=== PATIENT | male | born 1950 | race Caucasian/White ===

== ENCOUNTER → 2017-12-31 08:58 | Outpatient (CLI) | payer MEDICARE, SELFPAY ==
[2017-12-31 10:46] LABS: Anion Gap 11 (5-15); BUN 9 mg/dL (7-18); BUN/Creat Ratio 12.4 RATIO (10-20); Calcium,Total 8.9 mg/dL (8.5-10.1); Chloride 108 mmol/L (98-107); Cholesterol 115 mg/dL (200); Creatinine, Serum 0.73 mg/dL (0.70-1.30); EST Glomerular Filtration Rate 114 mL/min (>60); Est Glom Filt Rate - Afr Amer 138 mL/min (>60); Glucose 86 mg/dL (74-106); High Density Lipoprotein 45 mg/dL; PSA,Total - Annual Screen 2.85 ng/mL (0.00-4.00); Potassium 4.3 mmol/L (3.5-5.1); Sodium Level 143 mmol/L (136-145); Triglycerides 99 mg/dL; Very Low Density Lipoprotein 20 mg/dL (5-40)
== END ==
PROVIDERS: Family Provider Family Medicine; PCP Family Medicine; Visit Provider Family Medicine
DX: E78.5 Hyperlipidemia, unspecified (principal); Z12.5 Encounter for screening for malignant neoplasm of prostate; I10 Essential (primary) hypertension
CPT/HCPCS: 36415; 80048; 80061; 84153; G0103

== ENCOUNTER → 2019-01-27 07:02 | Outpatient (CLI) | payer MEDICARE, SELFPAY ==
[2019-01-27 10:21] LABS: Anion Gap 2 (5-15); BUN 11 mg/dL (7-18); BUN/Creat Ratio 13.8 RATIO (10-20); Calcium,Total 8.8 mg/dL (8.5-10.1); Chloride 107 mmol/L (98-107); Cholesterol 126 mg/dL (200); EST Glomerular Filtration Rate 102 mL/min (>60); Est Glom Filt Rate - Afr Amer 123 mL/min (>60); Glucose 92 mg/dL (74-106); High Density Lipoprotein 61 mg/dL; Sodium Level 139 mmol/L (136-145); Triglycerides 131 mg/dL; Very Low Density Lipoprotein 26 mg/dL (5-40)
== END ==
PROVIDERS: Family Provider Family Medicine; PCP Family Medicine; Referring Provider Family Medicine; Visit Provider Family Medicine
DX: I25.10 Atherosclerotic heart disease of native coronary artery without angina pectoris (principal); Z12.5 Encounter for screening for malignant neoplasm of prostate; I10 Essential (primary) hypertension
CPT/HCPCS: 36415; 80048; 80061; 84153; G0103

== ENCOUNTER → 2019-09-21 08:04 | Outpatient (CLI) | payer MEDICARE, SELFPAY ==
[2019-09-21 10:08] LABS: ALB/GLOB Ratio 1.4 RATIO (0.9-2.4); AST(SGOT) 35 U/L (15-37); Alanine Aminotransfer ALT/SGPT 55 U/L (16-61); Albumin, Serum 3.9 g/dL (3.2-5.0); Alkaline Phosphatase 60 U/L (45-117); Anion Gap 10 (5-15); BUN 14 mg/dL (7-18); BUN/Creat Ratio 15.7 RATIO (10-20); Calcium,Total 8.9 mg/dL (8.5-10.1); Chloride 108 mmol/L (98-107); Creatinine, Serum 0.89 mg/dL (0.70-1.30); EST Glomerular Filtration Rate 90 mL/min (>60); Est Glom Filt Rate - Afr Amer 108 mL/min (>60); Globulin 2.7 g/dL (2.2-4.2); Glucose 97 mg/dL (74-106); Potassium 3.9 mmol/L (3.5-5.1); Protein, Total 6.6 g/dL (6.4-8.2); Sodium Level 142 mmol/L (136-145)
== END ==
PROVIDERS: Family Provider Family Medicine; PCP Family Medicine; Referring Provider Family Medicine; Visit Provider Family Medicine
DX: I10 Essential (primary) hypertension (principal)
CPT/HCPCS: 36415; 80053

== ENCOUNTER → 2019-09-30 11:08 | Outpatient (CLI) | payer MEDICARE, SELFPAY ==
[2019-09-30 13:08] LABS: PSA,Total- Diagnostic 3.42 ng/mL (0.0-4.0)
== END ==
PROVIDERS: PCP Family Medicine; Referring Provider Family Medicine; Visit Provider Family Medicine
DX: R97.20 Elevated prostate specific antigen [PSA] (principal)
CPT/HCPCS: 36415; 84153

== ENCOUNTER → 2020-02-29 09:19 | Outpatient (CLI) | payer MEDICARE, SELFPAY ==
[2020-02-29 09:47] LABS: Absolute Lymphocyte Count 2.14 X10^3/uL (0.83-4.51); Absolute Neutrophil Count 3.8 X10^3/uL (2.0-7.7); Basophil# 0.04 X10^3/uL; Basophil% 0.6 % (0-1); Eosinophil# 0.08 X10^3/uL; Eosinophils% 1.1 % (0-5); Hematocrit 46.8 % (40-54); Hemoglobin 16.2 g/dL (13.0-16.5); Lymphocyte # 2.14 X10^3/ul (4.0); Lymphocyte % 30.5 % (19-41); Mean Corp Hgb Conc 34.6 g/dL (32-36); Mean Corpuscular Hgb 33.8 pg (27.0-32.0); Mean Corpuscular Volume 97.5 fL (80-94); Mean Platelet Vol. 9.8 fl (6.2-12.0); Monocyte# 0.93 X10^3/uL; Monocyte% 13.2 % (0-10); NRBC Flagged by Analyzer 0 % (0-5); Neutrophil # 3.81 X10^3/uL (2.7-7.7); Neutrophil % 54.3 % (47-70); Platelet Count 201 K/mm3 (150-450); RBC Distribution Width CV 11.6 % (11.6-14.6); RBC Distribution Width SD 41.6 fl (35.1-43.9)
[2020-02-29 10:19] LABS: ALB/GLOB Ratio 1.5 RATIO (0.9-2.4); AST(SGOT) 35 U/L (15-37); Alanine Aminotransfer ALT/SGPT 75 U/L (16-61); Alkaline Phosphatase 60 U/L (45-117); Anion Gap 7 (5-15); BUN 14 mg/dL (7-18); BUN/Creat Ratio 18.5 RATIO (10-20); Calcium,Total 8.8 mg/dL (8.5-10.1); Chloride 105 mmol/L (98-107); Cholesterol 138 mg/dL (200); Creatinine, Serum 0.76 mg/dL (0.70-1.30); EST Glomerular Filtration Rate 108 mL/min (>60); Est Glom Filt Rate - Afr Amer 131 mL/min (>60); Globulin 2.7 g/dL (2.2-4.2); Glucose 95 mg/dL (74-106); High Density Lipoprotein 70 mg/dL; Potassium 3.8 mmol/L (3.5-5.1); Protein, Total 6.7 g/dL (6.4-8.2); Sodium Level 139 mmol/L (136-145); Triglycerides 205 mg/dL; Very Low Density Lipoprotein 41 mg/dL (5-40)
== END ==
PROVIDERS: PCP Family Medicine; Referring Provider Family Medicine; Visit Provider Family Medicine
DX: I10 Essential (primary) hypertension (principal)
CPT/HCPCS: 36415; 80053; 80061; 85025

== ENCOUNTER → 2020-09-27 11:49 | Outpatient (CLI) | payer MEDICARE, SELFPAY ==
--- NOTE | 2020-09-27 11:54 | RAD_ITS ---
HISTORY: BRONCHITIS EXAM: XR Chest 2 Views: COMPARISON: July 15, 2016 FINDINGS: # of images incl. paperwork: 2 Right shoulder arthroplasty remains. Cerclage wires about the sternum remain. Fractures of the cranial-most sternal wire in 2 places is new. Previously it was only fractured in one place. Additional mediastinal clips are present. Lungs are hyperexpanded. Some old healed right rib fractures. Heart is not enlarged. No acute osseous pathology perceived. Pulmonary vascularity is distinct. No effusions. RAD/Chest PA and Lateral IMPRESSION: No acute cardiopulmonary disease. The cranial-most sternal wire is fractured in one place on the previous study. On today's study is fractured in 2 places.. at 0655 Reported and signed by: Cornelio Russo MD Electronically Signed: Cornelio Russo MD at 6:54 EDT Tel , Service support ,
== END ==
PROVIDERS: PCP Family Medicine; Referring Provider Family Medicine; Visit Provider Family Medicine
DX: J20.9 Acute bronchitis, unspecified (principal)
CPT/HCPCS: 71046; 87635; U0005; U0003

== ENCOUNTER → 2020-09-27 | Outpatient (CLI) | payer MEDICARE, SELFPAY | END | disposition home or self-care (01) | LOC: LABSPEC 15:07 | PROVIDERS: PCP Family Medicine; Visit Provider Family Medicine | DX: J20.9 Acute bronchitis, unspecified (principal) | CPT/HCPCS: 87635; U0005; U0003 ==

== ENCOUNTER → 2021-04-11 08:19 | Outpatient (CLI) | payer MEDICARE, SELFPAY ==
[2021-04-11 10:16] LABS: Absolute Lymphocyte Count 2.12 X10^3/uL (0.83-4.51); Absolute Neutrophil Count 3.7 X10^3/uL (2.0-7.7); Basophil# 0.05 X10^3/uL; Basophil% 0.7 % (0-1); Eosinophil# 0.31 X10^3/uL; Eosinophils% 4.4 % (0-5); Hematocrit 45.8 % (40-54); Lymphocyte # 2.12 X10^3/ul (0.83-4.51); Lymphocyte % 29.9 % (19-41); Mean Corp Hgb Conc 34.9 g/dL (32-36); Mean Corpuscular Hgb 33.4 pg (27.0-32.0); Mean Corpuscular Volume 95.6 fL (80-94); Mean Platelet Vol. 9.7 fl (6.2-12.0); Monocyte# 0.91 X10^3/uL; Monocyte% 12.8 % (0-10); NRBC Flagged by Analyzer 0 % (0-5); Neutrophil # 3.69 X10^3/uL (2.7-7.7); Neutrophil % 52.1 % (47-70); Platelet Count 206 K/mm3 (150-450); RBC Distribution Width CV 12.5 % (11.6-14.6); RBC Distribution Width SD 43.8 fl (35.1-43.9); Red Blood Count 4.79 M/mm3 (4.6-6.2); White Blood Count 7.1 K/mm3 (4.4-11.0)
[2021-04-11 10:34] LABS: ALB/GLOB Ratio 1.2 RATIO (0.9-2.4); AST(SGOT) 33 U/L (15-37); Alanine Aminotransfer ALT/SGPT 66 U/L (16-61); Albumin, Serum 3.6 g/dL (3.2-5.0); Alkaline Phosphatase 64 U/L (45-117); Anion Gap 5 (5-15); BUN 10 mg/dL (7-18); BUN/Creat Ratio 14.8 RATIO (10-20); Calcium,Total 8.7 mg/dL (8.5-10.1); Chloride 108 mmol/L (98-107); Cholesterol 115 mg/dL (200); Creatinine, Serum 0.67 mg/dL (0.70-1.30); EST Glomerular Filtration Rate 123 mL/min (>60); Est Glom Filt Rate - Afr Amer 149 mL/min (>60); Globulin 2.9 g/dL (2.2-4.2); Glucose 98 mg/dL (74-106); High Density Lipoprotein 54 mg/dL; PSA,Total- Diagnostic 3.59 ng/mL (0.0-4.0); Potassium 3.9 mmol/L (3.5-5.1); Protein, Total 6.5 g/dL (6.4-8.2); Sodium Level 140 mmol/L (136-145); Triglycerides 132 mg/dL; Very Low Density Lipoprotein 26 mg/dL (5-40)
== END ==
PROVIDERS: Nurse Practitioner Family; PCP Family Medicine; Referring Provider Family Medicine; Visit Provider Family Medicine
DX: R97.20 Elevated prostate specific antigen [PSA] (principal); I10 Essential (primary) hypertension
CPT/HCPCS: 36415; 80053; 80061; 84153; 85025

== ENCOUNTER → 2022-07-22 | Outpatient (CLI) | payer MEDICARE, SELFPAY ==
[2022-07-22 15:57] LABS: Vitamin D,25 Hydroxy 30.3 ng/mL
[2022-07-22 15:58] LABS: ALB/GLOB Ratio 1.4 RATIO (0.9-2.4); AST(SGOT) 42 U/L (15-37); Albumin, Serum 3.8 g/dL (3.2-5.0); Alkaline Phosphatase 58 U/L (45-117); BUN 17 mg/dL (7-18); BUN/Creat Ratio 20.6 RATIO (10-20); Calcium,Total 9.3 mg/dL (8.5-10.1); Creatinine, Serum 0.83 mg/dL (0.70-1.30); EST Glomerular Filtration Rate 97 mL/min (>60); Est Glom Filt Rate - Afr Amer 117 mL/min (>60); Globulin 2.7 g/dL (2.2-4.2); Glucose 101 mg/dL (74-106); Protein, Total 6.5 g/dL (6.4-8.2)
[2022-07-22 15:59] LABS: Alanine Aminotransfer ALT/SGPT 64 U/L (16-61); Anion Gap 6 (5-15); Chloride 105 mmol/L (98-107); Cholesterol 117 mg/dL (200); High Density Lipoprotein 58 mg/dL; Potassium 3.9 mmol/L (3.5-5.1); Sodium Level 140 mmol/L (136-145); Triglycerides 160 mg/dL; Very Low Density Lipoprotein 32 mg/dL (5-40)
== END | disposition home or self-care (01) ==
PROVIDERS: PCP Family Medicine; Referring Provider Family Medicine; Visit Provider Family Medicine
DX: I10 Essential (primary) hypertension (principal); E78.5 Hyperlipidemia, unspecified; N40.0 Benign prostatic hyperplasia without lower urinary tract symptoms; M85.80 Other specified disorders of bone density and structure, unspecified site; Z12.5 Encounter for screening for malignant neoplasm of prostate
CPT/HCPCS: 36415; 80053; 80061; 82306; 84153; G0103

== ENCOUNTER → 2022-09-09 | Outpatient (CLI) | payer MEDICARE, SELFPAY ==
--- NOTE | 2022-09-09 12:15 | CT_ITS ---
STUDY: CT ABDOMEN AND PELVIS WITHOUT CONTRAST REASON FOR EXAM: Male, 72 years old. RIGHT FLANK PAIN. History of kidney stones. RADIATION DOSAGE (If Supplied By Facility): CTDIvol = ( 10.36 ) mGy, DLP = ( 489.03 ) mGycm TECHNIQUE: Transaxial images were obtained from the dome of the diaphragm to the symphysis pubis without oral contrast, and without intravenous contrast. Sagittal and coronal images were reconstructed. Individualized dose optimization techniques were used for this CT. COMPARISON: None. FINDINGS: Mild increased linear markings at the lung bases suggestive of linear atelectasis and/or scarring. Calcified left hilar lymph nodes. Coronary artery calcifications. Multiple cysts are seen in the liver. The largest cyst is in the left lobe of the liver inferiorly and measures 5.4 cm x 5.7 cm. A tiny solitary gallstone is seen within the gallbladder lumen. Normal spleen. Normal pancreas. Normal bilateral adrenal glands. Normal right kidney. Normal left kidney. Normal visualized stomach. Normal small intestine. There are multiple colonic diverticula consistent with diverticulosis. The appendix is visualized and appears normal. There is diffuse atherosclerotic calcification of the abdominal aorta, without a demonstrated aneurysm. Normal inferior vena cava. Normal retroperitoneum. Normal urinary bladder. There is enlargement of the prostate gland. The prostate measures 3.8 cm x 5.4 cm. This causes indentation of the bladder base. There is a right-sided inguinal hernia containing adipose tissue. There are degenerative changes of the visualized lumbar spine. CT/Abdomen/Pelvis without Cont IMPRESSION: Mild increased markings at the lung bases suggestive linear atelectasis and/or scarring. Tiny solitary gallstone. Sigmoid diverticulosis. Prostatic enlargement with indentation at the bladder base. Electronically Signed: Neal Monzon MD at 12:51 EDT ,
== END | disposition home or self-care (01) ==
LOC: CT 12:03
PROVIDERS: PCP Family Medicine; Referring Provider Family Medicine; Visit Provider Family Medicine
DX: R10.9 Unspecified abdominal pain (principal)
CPT/HCPCS: 74176

== ENCOUNTER 2022-10-12 15:51 | Emergency (ER) | payer MEDICARE, SELFPAY ==
[2022-10-12 15:52] VITALS: BP 129/83; PULSE 82; RESP 18; TEMP 36.6; O2SAT 98; BMI 26.9
[2022-10-12] MEDS: HYDROcodone Bitartrate/Apap 5/325 Tablet PO (16:23)
[2022-10-12] MEDS: Clindamycin HCl 150 MG Capsule 300 MG PO (16:24)
--- NOTE | 2022-10-12 16:25 | RAD_ITS ---
INDICATION: Injury/Pain EXAMINATION/TECHNIQUE: X-RAY - LEFT XR Foot Min 3 Views 3 VIEWS COMPARISON: FINDINGS: SOFT TISSUES: No soft tissue swelling or gas. No radiopaque foreign body. BONES/JOINTS: On the lateral view there is a vertical lucency within the cuboid suspicious for fracture. Moderate posterior and mild plantar calcaneal spurring. Accentuation of arch of the foot. RAD/Foot min 3 Views IMPRESSION: Suspect fracture of the cuboid. Moderate posterior mild plantar calcaneal spurring. Accentuation of arch of the foot. Electronically Signed: Galo Estrada MD, MITA at 16:49 EDT ,
[2022-10-12] MEDS: Diphth,Pertuss(Acell),Tet Vac 0.5 ML Vial IM (16:46)
--- NOTE | 2022-10-12 16:56 | EDS_ITS ---
HPI History of Present Illness HPI Narrative: Patient presents with injury to his left great toe that occurred today. Patient states he dropped his drill that had a screwdriver bit and it. Patient states that went through his shoe and into the nail plate of his left great toe. Patient was able to remove this without difficulty. Patient denies any paresthesias or weakness. Patient states his pain is worse with any movement. Patient is unsure of his last tetanus. Chief Complaint: Lower Extremity Injury Informant: patient Occured/Mechanism Mechanism/Context: Yes direct blow and Yes puncture wound Onset/Context/Timing Onset: Today Context: Sudden Onset Timing: Continuous Quality of Pain: Aching and Throbbing Location: Left great toe Worsened by: Movement Relieved by: Nothing Associated Symptoms Associated Symptoms: Negative for Parasthesia, Weakness or Loss of Funtion Narrative Tetanus Immunization: Unknown [facility] Medical History HTN (hypertension) RLS (restless legs syndrome) Home Medications aspirin 81 mg chewable tablet 81 mg PO DAILY@0800 07/15/16 [History Last Taken 07/17/16] atorvastatin 20 mg tablet (Lipitor) 20 mg PO DAILY 07/15/16 [History Last Taken 07/17/16] clonazepam 1 mg tablet 1 mg PO QHS 07/15/16 [History Last Taken 07/16/16] metoprolol succinate 25 mg tablet,extended release 24 hr (Toprol XL) 50 mg PO QHS 07/15/16 [History Last Taken 07/16/16] pediatric multivit no.158-iron fum 18 mg-vit K1 10 mcg chewable tablet (Cerovite Jr) 1 ea PO DAILY 07/15/16 [History Last Taken 07/17/16] ramipril 5 mg capsule 5 mg PO DAILY 07/15/16 [History Last Taken 07/17/16] sennosides 8.6 mg-docusate sodium 50 mg tablet (Stool Softener-Stimulant Laxative) 2 tab PO BID 07/17/16 [Rx Last Taken 07/17/16] clobetasol 0.05 % topical cream 1 applic topical BID 07/23/16 [Rx Last Taken Unknown] hydrocodone-acetaminophen 5-325mg 5mg-325mg 1 - 2 tab PO Q6H PRN PRN Pain ##30 07/23/16 [Rx Last Taken Unknown] magnesium hydroxide 400 mg/5 mL oral suspension 30 ml PO .PRN X 1 PRN Constipation ##0 07/23/16 [Rx Last Taken Unknown] rivaroxaban 10 mg tablet (Xarelto) 10 mg PO DAILY@0600 ##15 07/23/16 [Rx Last Taken Unknown] sodium chloride 0.65 % nasal spray aerosol (Deep Sea Nasal) 1 spray TID PRN PRN NASAL DRYNESS ##0 07/23/16 [Rx Last Taken Unknown] tizanidine 2 mg tablet 2 mg PO Q8H PRN PRN muscle spasms ##20 07/23/16 [Rx Last Taken Unknown] clindamycin HCl 300 mg capsule (Cleocin HCl) 300 mg PO Q6H #40 CAPSULES 10/12/22 [Rx Last Taken Unknown] hydrocodone-acetaminophen 5-325mg 5mg-325mg 1 tab PO Q6H PRN PRN Pain 3 days #10 TABLETS 10/12/22 [Rx Last Taken Unknown] Allergy/AdvReac Type Severity Reaction Status Date / Time Penicillins Allergy Unknown Verified 10/12/22 15:53 Sulfa (Sulfonamide Allergy Unknown Verified 10/12/22 15:53 Antibiotics) Social History Smoking Status: Current every day smoker tobacco type: cigarettes ROS ROS ED Constitutional Constitutional ED: Denies chills or fever(s) Eyes Eyes: Denies blurry vision or change in vision ENT ENT ED: Denies rhinorrhea or sore throat Cardiovascular Cardiovascular: Denies chest pain or palpitations Respiratory/Chest Respiratory/Chest: Denies cough or dyspnea Gastrointestinal Gastrointestinal: Denies nausea or vomiting Genitourinary Genitourinary ED: Denies dysuria or hematuria Musculoskeletal Musculoskeletal: Denies back pain or neck pain Integumentary Denies abscess or rash Neurologic Neurologic: Denies headache(s) or weakness Allergic/Immunologic Allergic/Immunologic ED: Denies mouth swelling or urticaria EXAM Physical Exam Const Vital Signs: 10/12/22 15:52 Temperature 98 F Temperature Source Temporal Pulse Rate 82 Respiratory Rate 18 Blood Pressure 129/83 H Blood Pressure Mean 98 Pulse Ox 98 Oxygen Delivery Method Room Air Positive well nourished and well developed General Appearance ED: well developed and NAD HEENT Reports moist mucous membranes Neck full ROM and supple Extremity Extremity Narrative: There is tenderness over the distal phalanx of the left great toe. There is some edema and ecchymosis noted. Range of motion was limited in flexion extension of the IP and MP joints of the left great toe secondary to pain. There is no obvious deformity noted. There is a 0.5 cm laceration through the base of the nail plate. There is no bleeding noted. Sensation was intact to light touch in all digits. Capillary refill was less than 2 seconds in all digits. Neuro oriented x3, CN's II-XII intact bilaterally, moves all extremities and no sensory deficits noted Sensorium / Orientation: alert Motor Exam: general weakness MDM MDM MDM Narrative Medical decision making narrative: Differential diagnosis includes fracture, laceration, and contusion. X-rays of the left foot will be obtained to assess for fracture. Radiography Diagnostic Testing: Clinical Impression(s) from Imaging Studies Foot X-Ray 10/12/22 16:25 IMPRESSION: Suspect fracture of the cuboid. Moderate posterior mild plantar calcaneal spurring. Accentuation of arch of the foot. Electronically Signed: Galo Estrada MD, MITA at 16:49 EDT Reading Location ID and State: [facility] / [place] Tel , Service support , X-rays of the left foot were obtained. There are 3 views. On my independent interpretation, there is no acute fracture. There is no dislocation. There is some mild soft tissue swelling. Radiologist also interpreted the x-rays and noted that there could be a questionable fracture through the cuboid. Treatment and Re-Evaluation Narrative: On reevaluation, patient had no tenderness over the cuboid or other tarsal bones. The wound was cleaned and dressed with bacitracin dressing. I do not feel that laceration repair is indicated at this time since it is only 0.5 cm and it goes through the nail plate which will hold the wound edges together. Odell hernandez is agreeable with this treatment plan. Patient was given a postop shoe. Patient was instructed to ice and elevate the left foot. Patient was given a prescription for a short course of [place]. Patient was also given a prescription for clindamycin. Patient was instructed to follow-up with his primary care physician in 5 to 7 days. Patient was also given a referral for podiatry. Patient understood and was agreeable with plan. All questions were answered. Discharge Plan Triage Chief Complaint: Lower Extremity Injury ED Provider: Gal Matamoros Dx/Rx/DC Orders Clinical Impression: Puncture wound of left great toe w/o foreign body with damage to nail Instructions: ED Puncture Wound (Foot) Prescriptions: New hydrocodone-acetaminophen [hydrocodone-acetaminophen] 5-325 mg tablet 1 tab PO Q6H PRN PRN (Reason: Pain) 3 Days Qty: 10 0RF clindamycin HCl [Cleocin HCl] 300 mg capsule 300 mg PO Q6H Qty: 40 0RF No Action atorvastatin [Lipitor] 20 MG tablet 20 mg PO DAILY Label Comments: cholesterol clonazepam 1 MG tablet 1 mg PO QHS Label Comments: treat seizures aspirin 81 MG tablet,chewable 81 mg PO DAILY@0800 Label Comments: heart health metoprolol succinate [Toprol XL] 25 MG tablet extended release 24 hr 50 mg PO QHS Label Comments: treat high blood pressure ramipril 5 MG capsule 5 mg PO DAILY Label Comments: treat high blood pressure pedi multivit 148-[id number]-lyl K1 [Cerovite Jr] 1 EACH tablet,chewable 1 ea PO DAILY Label Comments: supplement sennosides-docusate sodium [Stool Softener-Stimulant Laxat] 1 TABLET tablet 2 tab PO BID 0RF Label Comments: stool softener tizanidine 2 MG tablet 2 mg PO Q8H PRN PRN (Reason: muscle spasms) Qty: 20 0RF Label Comments: treat muscle spasms clobetasol 15 GM cream 1 applic topical BID 0RF Label Comments: treat a variety of skin conditions topically magnesium hydroxide 30 ML suspension 30 ml PO .PRN X 1 PRN (Reason: Constipation) Qty: 0 0RF Label Comments: treat constipation sodium chloride [Deep Sea Nasal] 1 SPRAY aerosol,spray 1 spray NASAL TID PRN PRN (Reason: NASAL DRYNESS) Qty: 0 0RF Label Comments: supplement hydrocodone-acetaminophen 1 TABLET tablet 1 - 2 tab PO Q6H PRN PRN (Reason: Pain) Qty: 30 0RF Label Comments: moderate pain rivaroxaban [Xarelto] 10 MG tablet 10 mg PO DAILY@0600 Qty: 15 0RF Label Comments: blood thinner Primary Care Provider: Leann Pickens Referrals: Leann Pickens, [Primary Care Provider] - 5-7 Days Bennett Najera DPM [Med Staff - Active Staff] - 5-7 Days Disposition Disposition: Home, Self Care
== END 2022-10-12 17:43 | disposition home or self-care (01) ==
PROVIDERS: Emergency Provider Emergency Medicine; PCP Family Medicine; Visit Provider Emergency Medicine
DX: S91.232A Puncture wound without foreign body of left great toe with damage to nail, initial encounter (principal); I10 Essential (primary) hypertension; F17.210 Nicotine dependence, cigarettes, uncomplicated; W29.8XXA Contact with other powered hand tools and household machinery, initial encounter; Z23 Encounter for immunization
CPT/HCPCS: 73630; 90471; 90715; 99284

== ENCOUNTER → 2023-05-12 | Outpatient (CLI) | payer MEDICARE, SELFPAY ==
--- NOTE | 2023-05-12 08:42 | ART_ITS ---
Reason For Study: BLE Claudication Procedure A bilateral lower extremity continuous wave Doppler with analog waveform analysis and ankle brachial indexes. Left Segmental Pressures Left brachial= 106mmHg. Left posterior tibial artery = 128mmHg. Left dorsalis pedis artery = 118mmHg. Left digit = 116 mmHg. The left posterior tibial artery waveforms are triphasic. The left dorsalis pedis waveforms are triphasic. Right Segmental Pressures Right brachial= 104mmHg. Right posterior tibial artery = 142mmHg. Right dorsalis pedis artery = 115mmHg. Right digit = 124 mmHg. The right posterior tibial artery waveforms are triphasic. The right dorsalis pedis waveforms are triphasic. Indices The right ankle brachial index by the posterior tibial artery is 1.34. The right ankle brachial index by the dorsalis pedis is 1.08. The right digital-brachial index is 1.17. The left ankle brachial index by the posterior tibial artery is 1.21. The left ankle brachial index by the dorsalis pedis is 1.11. The left digital-brachial index is 1.09. VL/Ankle Brachial Index Interpretation Summary Right VAISHALI 1.34, normal. TBI and Doppler/PVR waveforms of the right leg normal a t rest. Left VAISHALI 1.21, normal. TBI and Doppler/PVR waveforms of the left leg normal at rest. Ordering Physician: Alessio Black Referring Physician: ALESSIO BLACK MD Performed By: Paulo Thompson, RVT
--- OUTSIDE RECORDS SUMMARY | 2023-05-12 09:08 | XMS RPT_ITS | CCD ---
Author Name Unknown Address [address] [place] [address] Organization [facility] Care Team Providers [employer] Worker Name Role Phone Unavailable Primary Care Provider Unavailabl e PROVIDER, UNKNOWN Attending Unavailable PROVIDER, UNKNOWN Admitting Unavailable YANI RUELAS Referring Unavailable Problems Problem Classification Problem Date Documented Date Episodic/Chronic Congestive heart failure; nonhypertensive (2 sources) Diastolic heart failure; Translations: [Unspecified diastolic (congestive) heart failure] Onset: 03-05-2022 Chronic Coronary atherosclerosis and other heart disease (1 source) Atherosclerotic heart disease of [place] coronary artery without angina pectoris; Translations: [Atherosclerotic heart disease of [place] coronary artery without angina pectoris] Onset: 03-05-2022 Chronic Results Test Name Value Interpretation Reference Range Facil ity Encounters Encounter Date Encounter Type Care Provider Facility Start: 03-05-2022 End: 03-05-2022 Transcribe Orders Yani Ruelas 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 Work Phone: [facility]iology Plan of Treatment Date Care Activity Detail Author Start: 01-26-2022 Influenza vaccination Influenza Vacc ine (#1) [facility] Start: 2014 Pneumococcal vaccination Pneum ococcal Vaccine(s) (65+ yrs) (1 - PCV) [facility] Start: 1999 Measurement of occul t blood in single stool specimen FIT [facility] Start: 1999 Screening for malign ant neoplasm of colon CRC Screening [facility] Start: 1999 Shingles (RZV) Vacci ne (1 of 2) Shingles (RZV) Vaccine (1 of 2) [facility] Start: 1984 Lipid panel Cholesterol [facility] Start: 1968 Tetanus vaccination Tetanus (T d or Tdap) Booster [facility] Start: 1967 Hepatitis C screening Hepatitis C An tibody [facility] Start: 1967 Tetanus + diphtheria + acellular pertussis vaccine (product) [facility]: [facility] COVID-19 Vaccine (#1) COVID-19 Vacci ne (#[facility]: [facility] Screening for malign ant neoplasm of colon Colonoscopy [facility] Social History Date Type Detail Facility Tobacco smoking stat [facility] Tobacco smoking consumption unknown [facility]: 1950 [facility] Assigned At [facility] Evaluation note Note Date & Type Note Facility documented in this encounter [facility] Reason for Referral Specialty Diagnoses / Procedures Referred By Contac t Referred To Contact Radiology Diagnoses Heart failure, diastolic, due to CAD, unspecified failure chronicity (HCC) Procedures XR CHEST 2 VIEW PA+LAT Yani Ruelas, 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 [address] [place] [address] [facility] [address] [facility] [place] [address] Referral ID Status Reason Start Date Expiration Date Visits Re quested Visits Authorized [id number] Closed 03/05/2022 03/05/2023 1 1 Summary Purpose Family History No Family History Records Found Advance Directives No Advanced Directives Records Found Additional Source Comments (unrecognized sect ion and content) No Status Records Found INFORMATION SOURCE (unrecogn ized section and content) FOR RECORDS PERTAINING TO PATIENTS WHO ARE OR HAVE BEEN ENROLLED IN A CHEMICAL DEPENDENCY/SUBSTANCEABUSE PROGRAM, SOME INFORMATION MAY BE OMITTED. This clinical summary was aggregated from multiple sources. Caution should be exercised in using it in the provision of clinical care. This summary normalizes information from multiple sources, and as a consequence, information in this document may materially change the coding, format and clinical context of patient data. In addition, data may be omitted in some cases. CLINICAL DECISIONS SHOULD BE BASED ON THE PRIMARY CLINICAL RECORDS. [employer] provides no warranty or guarantee of the accuracy or completeness of information in this document.
== END | disposition home or self-care (01) ==
LOC: CVS 08:40
PROVIDERS: PCP Family Medicine; Referring Provider Family Medicine; Visit Provider Family Medicine
DX: I73.9 Peripheral vascular disease, unspecified (principal)
CPT/HCPCS: 93922

== ENCOUNTER → 2023-07-24 | Outpatient (CLI) | payer MEDICARE, SELFPAY ==
[2023-07-24 16:20] LABS: Anion Gap 6 (5-15); BUN 19 mg/dL (7-18); BUN/Creat Ratio 22.1 RATIO (10-20); Calcium,Total 9.2 mg/dL (8.5-10.1); Chloride 106 mmol/L (98-107); Cholesterol 119 mg/dL (200); Creatinine, Serum 0.86 mg/dL (0.70-1.30); EST Glomerular Filtration Rate 92 mL/min (>60); Est Glom Filt Rate - Afr Amer 112 mL/min (>60); Glucose 136 mg/dL (74-106); High Density Lipoprotein 58 mg/dL; PSA,Total - Annual Screen 4.13 ng/mL (0.00-4.00); Potassium 3.9 mmol/L (3.5-5.1); Sodium Level 138 mmol/L (136-145); Triglycerides 135 mg/dL; Very Low Density Lipoprotein 27 mg/dL (5-40)
== END | disposition home or self-care (01) ==
LOC: MFPLAB 11:33
PROVIDERS: PCP Family Medicine; Visit Provider Family Medicine
DX: I10 Essential (primary) hypertension (principal); Z12.5 Encounter for screening for malignant neoplasm of prostate
CPT/HCPCS: 36415; 80048; 80061; 84153; G0103